=== PATIENT | male | born 1955 | race Caucasian/White ===

== ENCOUNTER → 2020-08-28 | Outpatient (CLI) | payer OTHER | LOC: SJCVC 13:30 | PROVIDERS: ATTEND Internal Medicine | DX: Z01.818 Encounter for other preprocedural examination (principal); I25.10 Atherosclerotic heart disease of native coronary artery without angina pectoris; I10 Essential (primary) hypertension; E78.5 Hyperlipidemia, unspecified; R73.03 Prediabetes; E87.6 Hypokalemia; M19.90 Unspecified osteoarthritis, unspecified site; F17.210 Nicotine dependence, cigarettes, uncomplicated; Z79.899 Other long term (current) drug therapy ==

== ENCOUNTER → 2020-09-08 | Outpatient (CLI) | payer OTHER | LOC: SJCVCIMAG 08:46 | PROVIDERS: ATTEND Internal Medicine Cardiovascular Disease | DX: Z01.810 Encounter for preprocedural cardiovascular examination (principal); I49.3 Ventricular premature depolarization; I25.10 Atherosclerotic heart disease of native coronary artery without angina pectoris; E78.5 Hyperlipidemia, unspecified; F17.200 Nicotine dependence, unspecified, uncomplicated; I10 Essential (primary) hypertension; Z79.899 Other long term (current) drug therapy ==

== ENCOUNTER → 2020-09-26 | Outpatient (CLI) | payer OTHER ==
[~2020-09-26] MED LIST: ALDACTONE50 MG PO; ALPRAZOLAM1 MG PO; ALPRAZOLAM2 MG PO; AMLODIPINE BESY10 MG PO; ASA81BEC PO; BUPROPION HCL150 M1 PO; CRESTOR20 MG PO; DULOXETINE HCL60 MG PO; KLOR-CON M2020 MEQ PO; LEVOTHYROXINE25 MCG PO; LISINOPRIL20 MG PO; MAGNESIUM400 M1 PO; MULTI VITAMIN1 EACH PO; TRAZODONE HCL100 MG PO; VITAMIN D350 MC3 PO; ZINC50 M2 PO
[2020-09-26 11:40] LABS: HEMATOCRIT 42.8 % (42.0-52.0); HEMOGLOBIN 14.7 gm/dL (14.0-18.0); MCH 31.3 pg (26.0-34.0); MCHC 34.3 g/dL (28.0-37.0); MCV 91.4 fL (80.0-100.0); RBC 4.69 mil/uL (4.50-6.00); RDW 12.4 % (10.5-14.5); WBC 8.1 thou/uL (4.0-11.0)
[2020-09-26 11:49] LABS: URINE BILIRUBIN NEGATIVE (Negative); URINE BLOOD NEGATIVE (Negative); URINE CLARITY CLEAR; URINE COLOR YELLOW; URINE GLUCOSE-RANDOM* NEGATIVE (Negative); URINE KETONES NEGATIVE (Negative); URINE LEUKOCYTES-REFLEX NEGATIVE (Negative); URINE NITRITE-REFLEX NEGATIVE (Negative); URINE PROTEIN (DIPSTICK) NEGATIVE (Negative); URINE UROBILINOGEN 0.2 E.U./dl (0.2-1.0)
[2020-09-26 11:50] LABS: ALBUMIN 4.1 g/dL (3.4-5.0); CALCIUM 8.9 mg/dL (8.5-10.1); CREATININE 1.5 mg/dL (0.7-1.3); POTASSIUM 4.3 mmol/L (3.5-5.1)
[2020-09-26 11:59] LABS: INR 0.95; PROTIME 10.4 Seconds (10.5-12.1)
[2020-09-27 01:07] LABS: GLYCOHEMOGLOBIN (HGB A1C) 5.6 % (4.8-5.6)
== END ==
LOC: PAC 10:31
PROVIDERS: ATTEND Orthopaedic Surgery
DX: Z01.812 Encounter for preprocedural laboratory examination (principal); M16.12 Unilateral primary osteoarthritis, left hip

== ENCOUNTER 2020-10-09 07:42 | Observation (INO) | payer OTHER ==
[~2020-10-09] VITALS: Ht 185.4 cm; Wt 108.9 kg
--- NOTE | ~2020-10-09 | D ---
[facility] [address] [place] [address] DISCHARGE SUMMARY Name: ANA MÉNDEZ Room #: 442-P ADM IN M.R.#: [id number] Admission: 10/09/20 Attend Phys: Dario Muhammad MD Discharge: Date of : 55 Report #: [id number] THIS REPORT FOR: cc: Jorge Fan MD, Stanley P. MD Clymer, David J. MD ~ DATE OF SERVICE: 10/10/2020 FINAL DIAGNOSES: End-stage degenerative arthritis, left hip and hypertension. OPERATIVE PROCEDURE: Left total hip arthroplasty. HISTORY: This 65-year-old gentleman has rather severe progressive degenerative arthritis involving the left hip. He is otherwise generally healthy and fit, and active. He has elected to go ahead with total hip replacement. HOSPITAL COURSE: The patient went to the operating room on 10/09/2020. He underwent left total hip replacement, which he tolerated quite nicely. Postoperatively, he has had about 400 mL out from his Hemovac, but his hemoglobin is stable at 11.7 and he feels well without any significant symptoms or problems. At this point, the dressing is dry. The x-rays looked good. He has already started some organized therapy and making good progress in terms of movement and strength. He has tolerated oral diet and oral medications nicely. He is anxious for hospital discharge today or early tomorrow if possible. I will plan to proceed with aggressive therapy today, working in the hallway and on steps if possible. If he does make satisfactory progress and seems safe and functional and independent, then he should be ready for discharge either later this evening or tomorrow morning. DISCHARGE MEDICATIONS: Include Synthroid 25 mcg daily, trazodone 100 mg at bedtime, amlodipine 10 mg daily, potassium 20 mEq daily, bupropion 150 mg b.i.d., alprazolam 0.5 mg at bedtime, lisinopril 20 mg at bedtime, spironolactone 50 mg daily, Crestor 20 mg daily, magnesium 400 mg daily, vitamin D 50 mcg daily, Xarelto 10 mg daily, hydrocodone 5-10 mg every 4 hours as needed for pain. He will call if there are problems or questions and I will plan to see him back in my office in 1 week for followup and in 2 weeks for suture removal. By: [id number] Dario Muhammad MD /nt
[2020-10-09 08:53] VITALS: BP 149/89
[2020-10-09 16:04] VITALS: BP 117/62
[2020-10-09 19:16] VITALS: BP 126/75
--- NOTE | 2020-10-09 19:49 | NUR ---
ASSUMED PT CARE AT 1400 FROM PACU. PT IS ALERT & ORIENTED X4. PT HAS R FA 20 GAUGE. PT HAD L TOTAL HIP ARTHROPLASTY TODAY. PT HAS HEMOVAC ON L HIP, RAI DRESSING, ICE PACK AND SCD. FINISHED ADMISSION TODAY. PT C/O OF PAIN AND GIVEN PAIN MEDICATION PER PT REQUEST. PT TOLERATED CLEAR LIQUID DIET AND ADVANCE DIET THIS DINNER. PT FAMILY WAS AT THE BEDSIDE. NO C/O OF NAUSEA AND VOMITING. PT ON THE BED, BED ON THE LOWEST POSITION, SIDE RAILS UP, CALL LIGHT WITHIN REACH. WILL CONTINUE TO MONITOR PT. FOLLOW POC.
[2020-10-10 02:29] LABS: ABSOLUTE NEUTROPHILS 11.3 thou/uL (1.4-8.2); BASOPHILS 0.2 % (0.0-2.0); EOSINOPHILS 0.1 % (0.0-3.0); HEMATOCRIT 34.2 % (42.0-52.0); HEMOGLOBIN 11.7 gm/dL (14.0-18.0); MCH 31.4 pg (26.0-34.0); MCHC 34.2 g/dL (28.0-37.0); MCV 91.8 fL (80.0-100.0); MONOCYTES 6.2 % (1.0-8.0); PLATELET COUNT 219 thou/uL (150-400); POLYS 83.5 % (36.0-66.0); RBC 3.73 mil/uL (4.50-6.00); RDW 12.9 % (10.5-14.5); WBC 13.6 thou/uL (4.0-11.0)
[2020-10-10 02:39] LABS: CALCIUM 7.8 mg/dL (8.5-10.1); CREATININE 1.5 mg/dL (0.7-1.3); MAGNESIUM 1.8 mg/dL (1.8-2.4); POTASSIUM 4.2 mmol/L (3.5-5.1)
[2020-10-10 04:12] VITALS: BP 119/68
[2020-10-10 07:52] VITALS: BP 121/62
--- NOTE | 2020-10-10 08:18 | O ---
[facility] [address] [place] [place] [address] OPERATIVE REPORT Name: ANA MÉNDEZ Room #: 442-P ADM IN M.R.#: [id number] Admission: 10/09/20 Attend Phys: Dario Muhammad MD Discharge: Date of : 55 Report #: [id number] THIS REPORT FOR: cc: Jorge Fan MD, Stanley P. MD Clymer, David J. MD ~ DATE OF SERVICE: 10/09/2020 PREOPERATIVE DIAGNOSIS: End-stage degenerative arthritis, left hip. POSTOPERATIVE DIAGNOSIS: End-stage degenerative arthritis, left hip. PROCEDURE: Left total hip arthroplasty. SURGEON: Dario Muhammad MD INDICATIONS: This 65-year-old gentleman complains of progressive left hip pain with limited range of motion and crepitus and weakness. Clinical exam and x-rays confirm moderately severe degenerative arthritis. He has tried conservative measures without benefit and has decided now to go ahead with left total hip replacement. DESCRIPTION OF PROCEDURE: The patient was taken to the operating room where he was placed under general anesthesia. Prophylactic intravenous antibiotics were administered. He was positioned in the right lateral decubitus position. The left hip, thigh and leg were meticulously prepped and draped. A slightly curving posterolateral skin incision was made centered over the greater trochanter. This was carried through fascia and the gluteus was split longitudinally exposing the posterior aspect of the joint. The short external rotators and caps were taken down and preserved and tagged with several #1 FiberWire sutures. The hip was dislocated posteriorly. Marked degenerative change on the femoral head and acetabulum were noted. A femoral neck osteotomy was performed and the canal was opened using the Le[place] and Nephew hip system. The femur seemed best suited for a size 17 press-fit femoral stem. The calcar was trimmed down at appropriate level. The trial component was removed and attention directed to the acetabulum. The acetabulum was sequentially reamed, gradually advancing to a 54 mm reamer. The Le[place] and Nephew size 54 3-hole StikTite shell was then inserted, placing this in alignment with his true acetabulum, which placed this at about 45 degrees off of vertical and 20 degrees of anteversion. It seated nicely and appeared to be secure. In addition, three cancellous screws were placed through the apical holes, engaging good periacetabular bone, adding nicely to secure fixation. A 36 mm polyethylene liner was then inserted, placing the 20-degree elevated rim at about the 10 o'clock posterior position. It also seated nicely and appeared to be secure. The Le[place] [employer] Nephew size 17 high offset femoral [address] [address] OPERATIVE REPORT Name: ANA MÉNDEZ Room #: 442-P [facility] IN M.R.#: [id number] Admission: 10/09/20 Attend Phys: Dario Muhammad MD Discharge: Date of : 55 Report #: [id number] component was then inserted, positioning this in about 20 degrees of anteversion. It seated nicely and appeared to be secure. A trial reduction was performed and the hip seemed best suited for a +4 mm neck length. A 36 mm Oxinium head with a +4 mm neck length sleeve was selected. These were impacted onto the Zambrano taper and seated nicely and appeared to be secure. The hip demonstrated good alignment and range of motion and stability and appropriate leg length. The short external rotators and capsule were repaired back to bone using several sutures passed through the greater trochanter. A single Hemovac was left in the wound exiting through a separate stab incision. The fascia was closed with multiple #1 Vicryl sutures. The subcutaneous tissues were closed with 0 Monocryl. The skin was closed with skin silvia. The patient was awakened and returned to recovery room in good condition. <ELECTRONICALLY SIGNED> By: Dario Muhammad MD 10/10/20 0818 [id number] Dario Muhammad MD /nt
--- NOTE | 2020-10-10 11:09 | NUR ---
Assumed care of pt at 0700. Pt a&o4. Pain controlled with prn pain meds. Dressing c/d/i. Hemovac drain removed. Pt was cleared by physical therapy. Family at bedside. Pt will discharge to home.
[2020-10-10 12:26] VITALS: BP 121/62
[2020-10-10 13:13] VITALS: BP 121/62
--- NOTE | 2020-10-10 13:13 | NUR ---
ASSESSMENT: CM REVIEWED CHART AND SPOKE WITH PT AT THE BEDSIDE. PT IS ALERT AND ORIENTED X4. PT IS S/P TOTAL HIP REPLACEMENT. PT REPORTS THAT HE LIVES IN A [place]EL HOME WITH HIS WHO IS AT THE BEDSIDE. PT HAS ABOUT 7 STEPS WITH HANDRAILS TO EACH LEVEL. PT IS NEEDING A WALKER FOR DISCHARGE. PT REPORTS HAVING NO PREFERENCE OF [employer]. CM NOTIFIED [employer] WHO ISSUED A WALKER TO PATIENT. PT REPORTS THAT HE HAS A WALKIN SHOWER. PT DENIES HAVING ANY NEEDS FROM CM. PT DID WELL WITH THERAPY AND ANTICIPATING DISCHARGE HOME TODAY.
== END 2020-10-10 14:11 | disposition home or self-care (01) ==
LOC: OR → TBA 07:42 → 4S 07:42 → OR 08:46 → PRE 09:24 → OR 10:35 → EDSTATUS 12:17 → PRE 12:26 → OR 13:30 → 4S 13:40 → OR 15:51 → 4S 10-10 14:11
PROVIDERS: Nurse Practitioner; ADMIT Orthopaedic Surgery; ATTEND Orthopaedic Surgery
DX: M16.12 Unilateral primary osteoarthritis, left hip (principal); I10 Essential (primary) hypertension; N17.9 Acute kidney failure, unspecified; E78.5 Hyperlipidemia, unspecified; F41.9 Anxiety disorder, unspecified; F17.200 Nicotine dependence, unspecified, uncomplicated; Z79.899 Other long term (current) drug therapy
CPT/HCPCS: 10102; 50010; 50101; 50382; 50414; 51412; 53000; 53368; 56521; 56525; 56530; 57095; 62110; 62900; 70005